=== PATIENT | male | born 1960 | race Caucasian/White ===

== ENCOUNTER 2022-02-17 10:50 | Emergency (ER) | payer MEDICAID, SELFPAY ==
[2022-02-17 11:03] VITALS: BP 201/124; PULSE 78; RESP 18; TEMP 36.2; O2SAT 97; BMI 26.6
--- NOTE | 2022-02-17 11:43 | W.ED.GENADLT ---
HPI - General Adult General: Chief complaint: General Medical Stated complaint: Something in Right eye Time Seen by Provider: 02/17/22 11:05 History of Present Illness: 62-year-old male patient presents to the emergency department with right eye pain. 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 Patient states he woke up with eye pain feels like something is in his eye. Patient denies any fever. Patient denies any headache. Patient denies any dizziness or lightheadedness. Patient denies any sudden loss of vision. Associated symptoms: Deny chest pain, confusion, diaphoresis, dyspnea, headache(s), malaise, nausea, rash, palpitations, syncope or vomiting Review of Systems Const: Denies: fever(s), chills, body aches, change in appetite, change in weight, fatigue, malaise or diaphoresis Eyes: Denies: change in vision, blurry vision, blind spots, photophobia, eye discomfort, eye discharge, eye redness, floaters or seeing flashes ENMT: Denies: throat pain, uvular edema, enlarged tonsils, odynophagia, hoarseness, mouth pain, swelling of lips/tongue, oral sores, bleeding gums, dental pain, dry mouth, ear or mastoid pain, ear discharge, change in hearing, tinnitus, disequilibrium, nasal discharge, nasal congestion, post nasal drip or sinus pain Card: Denies: chest pain, palpitations, irregular heart rhythm, edema, swelling of feet/ankles, lightheadedness, syncope, pre-syncope, dyspnea on exertion, orthopnea, leg pain with exertion or acrocyanosis Resp: Denies: dyspnea, productive cough, non-productive cough, wheezing, stridor, pain on inspiration, change in phlegm color, hemoptysis or chest congestion GI: Denies: abdominal pain, nausea, vomiting, hematemesis, dysphagia, diarrhea, constipation, GI cramping, change in bowel habits or rectal pain : Denies: flank pain, dysuria, urinary frequency, urinary urgency, urinary hesitancy or hematuria Musc: Denies: neck pain, back pain, extremity pain, extremity swelling, joint pain, joint swelling, joint redness, joint warmth or deformity Skin/Breast: Denies: rash, pruritus, erythema, sores, new lesions, changes in skin color or dry skin Neuro: Denies: headache(s), numbness in extremities, weakness in extremities, sensory changes, lack of coordination, difficulty walking, frequent falls, dizziness, vertigo, confusion, behavioral changes, Slurred speech present, difficulty communicating thoughts or seizure-like activity Psych: Denies: anxiety, depression, suicidal ideation or homicidal ideation Endo: Denies: polyuria, polydipsia, tired all the time, cold intolerance, excessive sweating, flushing, hot flashes or heat intolerance Umang/Lymph: Denies: easy bruising, easy bleeding, petechiae, purpura, enlarged lymph nodes or tender lymph nodes All/Imm: Denies: urticaria, throat swelling, tongue swelling, facial swelling, acute wheezing or itchy eyes Physical Exam Const: COMMON NORMALS: no acute distress, average body habitus, patient oriented x3, no limitations, healthy appearing, alert and well nourished HENMT: THROAT: no uvular edema Eye: COMMON NORMALS: Equal, round and reactive pupils present, EOMs intact bilaterally, no scleral icterus, no papilledema, normal visual mi by confrontation and fundi normal bilaterally PERIORBITAL: periorbital findings normal EYELID: eyelid abnormality CONJUNCTIVA: Yes conjunctival abnormal SCLERA: sclerae normal CORNEA: Yes corneas normal and fluorescein used PUPIL: Yes Equal, round and reactive pupils present and Yes Pupil accommodation reflex normal DIRECT OPHTHALMOSCOPY: Yes no papilledema and Yes fundi normal bilaterally Neuro: COMMON NORMALS: patient oriented x3, CN's II-XII intact bilaterally, moves all extremities, no focal motor deficits and no sensory deficits noted SENSORIUM/ORIENTATION: Yes alert Course Vital Signs: Vital signs: Vital Signs Temperature 97.2 F L 02/17/22 11:03 Pulse Rate 78 02/17/22 11:03 Respiratory Rate 18 02/17/22 11:03 Blood Pressure 201/124 02/17/22 11:03 Pulse Oximetry 97 02/17/22 11:03 Oxygen Delivery Me thod 02/17/22 11:03 [facility] - General Adult Medical Decision Making Patient is well appearing non toxic and in no acute distress. 62-year-old male patient presents to the emergency department with right eye pain. 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 Patient states he woke up with eye pain feels like something is in his eye. Patient denies any fever. Patient denies any headache. Patient denies any dizziness or lightheadedness. Patient denies any sudden loss of vision. I did not observe any FB in eye or cornes abrasion. The eye pain is likely related to the welding light as he was not wearing any protective gear. Erythromycin and hydrocodone give. Pt to follow up with eye doctor tomorrow am Discharge Plan Discharge Condition: Stable Prescriptions: No Action Tylenol Ex Str Rapid Release 500 mg Tablet 1,000 mg PO Q6H PRN (Reason: Pain) Coding Level of Care Code ED Radiation Oncology Therapist for Susan Skelton
[2022-02-17] MEDS: HYDROcodone-acetaminophen 5-325 mg Tablet 2 TAB PO (11:53)
[2022-02-17] MEDS: erythromycin Op Oint 1 gm 1 APPLIC EYE-RIGHT (11:53)
== END 2022-02-17 12:00 | disposition home or self-care (01) ==
PROVIDERS: Emergency Provider Registered Nurse
DX: H57.11 Ocular pain, right eye (principal)
CPT/HCPCS: 99283